=== PATIENT | female | born 1955 | race Caucasian/White ===

== ENCOUNTER 2017-10-09 16:31 | Emergency (ER) | payer OTHER ==
[~2017-10-09] VITALS: Ht 167.6 cm; Wt 75.0 kg
[~2017-10-09 16:31] MED LIST: ASPERDRINK81 MG PO; ASPIR-TRIN325 M1 PO; ATIVAN0.5 MG PO; Ativan PO; CEFTIN500 MG PO; CLINDAMYCIN HC300 MG PO; COREG CR10 MG PO; COREG12.5 M1 PO; COREG25 M1 PO; COUMADIN2.5 MG PO; COUMADIN5 MG PO; Coreg PO; DIGOX125 MCG PO; FLONASE16 G1 BOTH NARES; Flonase BOTH NARES; K-DUR20 MEQ PO; K-Dur PO; LASIX20 MG PO; LASIX40 MG PO; LIPITOR5 MG PO; LISINOPRIL5 MG PO; OMNIPRED10 ML BOTH EYES; POTASSIUM CHLO10 ME4 PO; PREDNISONE20 MG PO; PROTONIX40 MG PO; Pradaxa PO; XARELTO20 MG PO; Zestril,Prinivil PO
[2017-10-09 17:00] LABS: HEMATOCRIT 39.2 % (36.0-46.0); HEMOGLOBIN 13.4 G/DL (11.9-15.5); MCHC 34.2 G/DL (30.0-36.0); MCV 96.6 FL (83-99); PLATELET COUNT 284 K/uL (156-360); RBC DIS.WIDTH-CV 12.6 % (11.8-14.6); RBC DIS.WIDTH-SD 44.7 % (39-53); RED BLOOD COUNT 4.06 M/uL (3.80-5.20); WHITE BLOOD COUNT 7.1 K/uL (4.1-10.2)
[2017-10-09 17:07] LABS: ALBUMIN 4.1 g/dL (3.2-4.8)
[2017-10-09 17:08] LABS: CHLORIDE 105 mEq/L (99-109); POTASSIUM 4.8 mEq/L (3.7-5.4); SODIUM 141 mEq/L (136-147)
[2017-10-09 17:10] LABS: GLUCOSE 138 mg/dL (70-99); TOTAL PROTEIN 7.6 g/dL (6.4-8.3)
[2017-10-09 17:12] LABS: TOTAL BILIRUBIN 0.8 mg/dL (0.0-1.0)
[2017-10-09 17:13] LABS: ALKALINE PHOSPHATASE 98 IU/L (3-129)
[2017-10-09 17:14] LABS: CREATININE 1.2 mg/dL (0.6-1.3); GFR ESTIMATE (CALCULATED) 49 mL/min/
[2017-10-09 17:15] LABS: AST (GOT) 25 IU/L (2-34); UREA NITROGEN (BUN) 23 mg/dL (9-23)
[2017-10-09 17:16] LABS: ALT (GPT) 18 IU/L (3-49)
[2017-10-09] MEDS ORDERED: FLEXERIL10 MG PO (19:07)
[2017-10-09 19:50] VITALS: BP 101/65
== END 2017-10-09 19:51 | disposition home or self-care (01) ==
LOC: EME 16:31
PROVIDERS: Nurse Practitioner Family
DX: S16.1XXA Strain of muscle, fascia and tendon at neck level, initial encounter (principal); V49.40XA Driver injured in collision with unspecified motor vehicles in traffic accident, initial encounter; Y92.481 Parking lot as the place of occurrence of the external cause; Z95.0 Presence of cardiac pacemaker; Z98.890 Other specified postprocedural states; I11.0 Hypertensive heart disease with heart failure; I50.9 Heart failure, unspecified; E78.5 Hyperlipidemia, unspecified; Z87.891 Personal history of nicotine dependence; Z79.01 Long term (current) use of anticoagulants; Z86.73 Personal history of transient ischemic attack (TIA), and cerebral infarction without residual deficits; Z95.2 Presence of prosthetic heart valve; Z85.72 Personal history of non-Hodgkin lymphomas; Z91.030 Bee allergy status
CPT/HCPCS: 72040; 72070; 80053; 85027; 85610; 93005; 99281; 99284